=== PATIENT | female | born 1990 | race Caucasian/White ===

== ENCOUNTER 2020-08-31 20:49 | Inpatient (IN) | payer OTHER, SELFPAY ==
[~2020-08-31] VITALS: Ht 170.2 cm; Wt 73.0 kg
[2020-08-31 20:55] VITALS: BP_SYST 111
[2020-08-31] MEDS ORDERED: DEXAMETHASONE SOD PHOSPHATE 10 MG/ML VIAL IVP ONE (21:45)
[2020-08-31] MEDS ORDERED: NACL 0.9% 1,000 ML IV ONE (21:45)
[2020-08-31] MEDS ORDERED: IPRATROPIUM/ALBUTEROL SULFATE 3 ML AMPUL.NEB (DUONEB) INH ONE (21:45)
[2020-08-31 22:20] LABS: HEMATOCRIT 39.8 % (36-48); HEMOGLOBIN 13.8 g/dL (12.0-16.0); MEAN CORPUSCULAR HEMOGLOBIN 30 pg (27-31); MEAN CORPUSCULAR HGB CONC 35 % (32-36); MEAN CORPUSCULAR VOLUME 86 fL (79.0-98.0); PLATELET COUNT (AUTO) 153 K/uL (130-430); RED BLOOD CELL COUNT(AUTO) 4.64 MIL/uL (4.2-6.2); RED CELL DISTRIBUTION WIDTH 12.3 % (9.0-15.0); WHITE BLOOD COUNT (AUTO) 2.3 K/uL (4.8-10.8)
[2020-08-31 22:37] LABS: CALCIUM 8.4 mg/dL (8.4-11.0); CREATININE 0.81 mg/dL (0.55-1.30); POTASSIUM 4.8 mmol/L (3.5-5.1)
[2020-08-31 22:43] LABS: ALBUMIN 3.5 g/dL (3.4-4.8); TOTAL BILIRUBIN 0.2 mg/dL (0.0-1.0)
[2020-08-31] MEDS ORDERED: ALBUTEROL MDI INHALATION 8 GM INH INH ONE (22:45)
[2020-08-31 23:45] LABS: BAND % (MANUAL) 2 % (0-6); BASOPHILS % (MANUAL) 0 % (0-2); EOSINOPHILS % (MANUAL) 0 % (0-7); LYMPHOCYTES % (MANUAL) 41 % (20-46); MONOCYTES % (MANUAL) 20 % (0-11)
[2020-09-01] MEDS ORDERED: AZITHROMYCIN 250 MG TABLET PO ONE
[2020-09-01] MEDS ORDERED: cefTRIAXone 1 GM in D5W 50 ML IV ONE ×2
[2020-09-01] MEDS ORDERED: cefTRIAXone 1 GM IVPB PREMIX 50 ML IV ONE ×2 (03:09→21:45)
[2020-09-01] MEDS ORDERED: AZITHROMYCIN 250 MG TABLET ONE (03:09)
[2020-09-01] MEDS: D5/0.45 NS 1,000 ML IV SCH ×2 (03:13→17:25)
[2020-09-01] MEDS ORDERED: ALPR0.25 PO (04:34)
[2020-09-01 05:10] VITALS: BP_SYST 112
[2020-09-01 08:00] VITALS: BP_SYST 108
[2020-09-01] MEDS: ALPRAZolam 0.25 MG TABLET PO PRN (10:18)
[2020-09-01 12:00] VITALS: BP_SYST 110
[2020-09-01 14:29] LABS: C-REACTIVE PROTEIN QUANT 0.3 mg/dL (0-0.5)
[2020-09-01] MEDS ORDERED: ASCORBIC ACID 500 MG TABLET PO ONE (14:30)
[2020-09-01] MEDS ORDERED: CHOLECALCIFEROL (VITAMIN D3) 5,000 UNIT TABLET PO ONE (14:30)
[2020-09-01 14:55] LABS: ERYTHROCYTE SEDIMENTATION RATE 16 MM/HR (0-20)
[2020-09-01 15:07] LABS: INR 0.9 (0.8-1.2); PROTHROMBIN TIME 9.3 SECS (9.5-12.5)
[2020-09-01 16:00] VITALS: BP_SYST 112
[2020-09-01] MEDS ORDERED: IOHEXOL 350 mgI/mL, 150 ML INFUS..BTL IV ONE (16:52)
[2020-09-01 17:14] LABS: HCG,QUAL RESULT NEGATIVE (NEGATIVE)
[2020-09-01] MEDS ORDERED: ALBUTEROL MDI INHALATION 8 GM INH INH PRN (18:15)
[2020-09-01] MEDS ORDERED: AZITHROMYCIN 500 MG/VIAL (ZITHROMAX) IV ONE (21:45)
[2020-09-01] MEDS: ASCORBIC ACID 500 MG TABLET PO SCH (21:49)
[2020-09-01] MEDS: cefTRIAXone 1 GM IVPB PREMIX 50 ML IV SCH (21:49)
[2020-09-01] MEDS: APIXABAN 2.5 MG TABLET PO SCH (21:50)
[2020-09-01 22:01] VITALS: BP_SYST 111
[2020-09-01] MEDS: AZITHROMYCIN 500 MG in NS 250 ML IV SCH (23:04)
[2020-09-01] MEDS: ACETAMINOPHEN 325 MG TABLET PO PRN (23:05)
[2020-09-02] VITALS (7 sets, daily range): BP systolic 100–117
[2020-09-02] MEDS: ONDANSETRON HCL 4 MG/2 ML VIAL IVP PRN (00:48)
[2020-09-02] MEDS: D5/0.45 NS 1,000 ML IV SCH (05:29)
[2020-09-02 06:33] LABS: BASOPHILS % (AUTO) 0.4 % (0.0-2.0); EOSINOPHILS % (AUTO) 0.6 % (0.0-4.0); HEMOGLOBIN 13.4 g/dL (12.0-16.0); LYMPHOCYTES # (AUTO) 1.8 K/uL (1.0-5.5); LYMPHOCYTES % (AUTO) 46.8 % (20.5-51.5); MEAN CORPUSCULAR HEMOGLOBIN 30 pg (27-31); MEAN CORPUSCULAR HGB CONC 34 % (32-36); MEAN CORPUSCULAR VOLUME 86 fL (79.0-98.0); MONOCYTES # (AUTO) 0.4 K/uL (0.0-1.0); MONOCYTES % (AUTO) 11.4 % (1.7-9.3); NEUTROPHILS # (AUTO) 1.6 K/uL (1.8-7.7); NEUTROPHILS % (AUTO) 40.8 % (40.0-70.0); PLATELET COUNT (AUTO) 176 K/uL (130-430); RED BLOOD CELL COUNT(AUTO) 4.52 MIL/uL (4.2-6.2); RED CELL DISTRIBUTION WIDTH 12.3 % (9.0-15.0); WHITE BLOOD COUNT (AUTO) 3.9 K/uL (4.8-10.8)
[2020-09-02 07:00] LABS: ALBUMIN 3.2 g/dL (3.4-4.8); CALCIUM 8.5 mg/dL (8.4-11.0); CREATININE 0.77 mg/dL (0.55-1.30); POTASSIUM 4.2 mmol/L (3.5-5.1); TOTAL BILIRUBIN 0.2 mg/dL (0.0-1.0)
[2020-09-02] MEDS: CHOLECALCIFEROL (VITAMIN D3) 5,000 UNIT TABLET PO SCH (08:25)
[2020-09-02] MEDS: ASCORBIC ACID 500 MG TABLET PO SCH ×2 (08:25→21:26)
[2020-09-02] MEDS: FAMOTIDINE 20 MG TABLET PO SCH (08:26)
[2020-09-02] MEDS: APIXABAN 2.5 MG TABLET PO SCH ×2 (08:26→21:28)
[2020-09-02] MEDS: ALPRAZolam 0.25 MG TABLET PO PRN (10:48)
[2020-09-02] MEDS ORDERED: AZITHROMYCIN 500 MG/VIAL (ZITHROMAX) IV ONE (20:57)
[2020-09-02] MEDS ORDERED: cefTRIAXone 1 GM IVPB PREMIX 50 ML IV ONE (20:57)
[2020-09-02] MEDS: cefTRIAXone 1 GM IVPB PREMIX 50 ML IV SCH (21:26)
[2020-09-02] MEDS: ACETAMINOPHEN 325 MG TABLET PO PRN (21:29)
[2020-09-02] MEDS: AZITHROMYCIN 500 MG in NS 250 ML IV SCH (23:16)
[2020-09-03 07:50] VITALS: BP_SYST 102
[2020-09-03] MEDS: CHOLECALCIFEROL (VITAMIN D3) 5,000 UNIT TABLET PO SCH (08:20)
[2020-09-03] MEDS: FAMOTIDINE 20 MG TABLET PO SCH (08:21)
[2020-09-03] MEDS: ASCORBIC ACID 500 MG TABLET PO SCH ×2 (08:21→21:56)
[2020-09-03] MEDS: APIXABAN 2.5 MG TABLET PO SCH ×2 (08:23→21:57)
[2020-09-03] MEDS ORDERED: levoFLOXacin 500 MG TABLET PO SCH (10:00)
[2020-09-03 12:00] VITALS: BP_SYST 121
[2020-09-03] MEDS: ONDANSETRON HCL 4 MG/2 ML VIAL IVP PRN (13:09)
[2020-09-03 16:00] VITALS: BP_SYST 113
[2020-09-03 20:07] VITALS: BP_SYST 120
== END 2020-09-03 22:05 | disposition home or self-care (01) | DRG 177 ==
LOC: SED 20:49 → STU 09-01 01:03
PROVIDERS: ADMIT Internal Medicine; ATTEND Internal Medicine
DX: U07.1 COVID-19 (principal); J12.82 Pneumonia due to coronavirus disease 2019; D70.9 Neutropenia, unspecified; F32.9 Major depressive disorder, single episode, unspecified; Z80.3 Family history of malignant neoplasm of breast; Z82.49 Family history of ischemic heart disease and other diseases of the circulatory system; Z83.3 Family history of diabetes mellitus; Z79.01 Long term (current) use of anticoagulants; Z79.899 Other long term (current) drug therapy
CPT/HCPCS: 36415; 71045; 71275; 76376; 80053; 82728; 83615; 83880; 84484; 84703; 85007; 85025; 85027; 85379; 85384; 85610-TC; 85651-TC; 85730-TC; 86140; 87040-TC; 93005; 94760; 96361; 96365; 96374; 99285; G0378; J0456; J0696; J1100; J2405; Q0144; Q9967